=== PATIENT | female | born 1955 | race Caucasian/White ===

== ENCOUNTER 2018-11-28 11:18 | Inpatient (IN) | payer OTHER, SELFPAY ==
[2018-11-28] VITALS (15 sets, daily range): BP systolic 108–163; BP diastolic 45–91; PULSE 80–114; RESP 13–22; TEMP 36.4–37.2; O2SAT 96–100; BMI 36.6
[2018-11-28 11:39] LABS: Add Manual Diff / Slide Review NO; Basophils Absolute Auto 100 /uL (0-100); Basophils Percent Auto 1.4 % (0-2); Eosinophils Absolute Auto 100 /uL (0-450); Eosinophils Percent Auto 0.9 % (2-4); Hematocrit 37.6 % (36-46); Hemoglobin 12.6 g/dL (12.0-16.0); Lymphocytes Absolute Auto 1800 /uL (1100-4500); Lymphocytes Percent Auto 17.1 % (25-40); Mean Corpuscular HGB Conc 33.4 % (30-36); Mean Corpuscular Hemoglobin 32.2 PG (26-34); Mean Corpuscular Volume 96.5 fL (80-100); Monocytes Absolute Auto 500 /uL (0-900); Monocytes Percent Auto 4.7 % (3-14); Neutrophils Absolute Auto 7800 /uL (1500-7000); Neutrophils Percent Auto 75.9 % (50-75); Platelet Count 334 X10^3/uL (150-400); Red Cell Distribution Width 12.4 % (11.6-14.8); White Blood Cell Count 10.3 X10^3/uL (4.5-11.0)
[2018-11-28] MEDS: ONDANSETRON 4 MG/2 ML INJ IV (11:41)
[2018-11-28] MEDS: SODIUM CHLORIDE 0.9% 1,000 ML 1000 ML IV (11:41)
--- NOTE | 2018-11-28 11:42 | DI.CT.S_ITS ---
PROCEDURE: CT HEAD/BRAIN WO CON INDICATIONS: confused sp intentional over dose TECHNIQUE: Noncontrast 4.5 mm thick angled axial sections acquired from the foramen magnum to the vertex, with coronal and sagittal reformats. For radiation dose reduction, the following was used: automated exposure control, adjustment of mA and/or kV according to patient size. COMPARISON: [facility], CT, BRAIN W/O CONTRAST, 01/30/2013, 6:38. FINDINGS: Image quality: Excellent. CSF spaces: Basal cisterns are patent. No extra-axial fluid collections. Ventricles are normal in size and shape. Brain: No midline shift. No intracranial masses or hemorrhage. Glynn-white matter interface is normal. Skull and face: Calvarium and visualized facial bones are intact, without suspicious lesions. Sinuses: Visualized sinuses and mastoids are clear. IMPRESSION: Normal for age, source of current altered mental status symptoms is not seen. Dictated by: Kyle Wang M.D. on 11/28/2018 at 12:43 Approved by: Kyle Wang M.D. on 11/28/2018 at 12:43
[2018-11-28 11:49] LABS: Acetaminophen < 10 ug/mL (10-30); Alanine Aminotransferase 40 IU/L (9-52); Albumin 4.7 g/dL (3.5-5.0); Albumin Globulin Ratio 1.6 (1.0-2.8); Alkaline Phosphatase 83 U/L (38-126); Aspartate Aminotransferase 33 IU/L (14-36); BUN Creatinine Ratio 33.3 (6-22); Bilirubin Total 0.3 mg/dL (0.2-1.3); Bilirubin Unconjugated 0.1 mg/dL (0.0-1.1); Blood Urea Nitrogen 20 mg/dL (7-17); Calcium 9.3 mg/dL (8.4-10.2); Carbon Dioxide 24 mmol/L (22-32); Chloride 101 mmol/L (98-107); Creatine Kinase 55 U/L (30-135); Estimated Glomerular Filt Rate > 60.0 mL/min (>60); Ethanol (ETOH) < 10 mg/dL; Glucose 111 mg/dL (80-110); HEMOLYSIS < 15 (0-50); Potassium 4.3 mmol/L (3.4-5.1); Sodium 137 mmol/L (137-145); Total Protein 7.7 g/dL (6.3-8.2)
[2018-11-28 11:53] LABS: Salicylate < 1.0 mg/dL (<20)
[2018-11-28 11:57] LABS: Lactate (Lactic Acid) 1.5 mmol/L (0.7-2.1)
[2018-11-28 11:59] LABS: Troponin I < 0.012 ng/mL (0.01-0.034)
[2018-11-28 12:04] LABS: Procalcitonin 0.09 ng/mL (<0.5)
--- NOTE | 2018-11-28 12:09 | PC.NURSE ---
Addendum entered by Rupal Orosco R.N. 11/28/18 14:15: means to read 'runaway hyper thermia'. Original Note: Called [place] [facility] control: [phone], spoke w/ Marychuy.Suggested CMP, Mag, EKG. Watch for fever, muscle rigidity/ clonus and seizure. Repeat EKG in 1-2 hours. If QTC prolonged, If Mag is below 2 give magnesium to prevent potential for dysrythmia. Load w/ benzos if needed for if runaway hypothermia. Do 4 hour tylenol level. Would need medical or ICU admission.
--- NOTE | 2018-11-28 12:18 | PC.NURSE ---
Pt currently under critical care r/t over dose. Unable to make room safe r/t need for medical management.
--- NOTE | 2018-11-28 12:22 | PC.NURSE ---
1117: EKG QT/QTC 343/407
--- NOTE | 2018-11-28 12:36 | ED.OVERDOSE ---
HPI - Overdose General Chief Complaint: Toxicology Problem Stated Complaint: overdose / 150 duloxetine 60 mg tab Time Seen by Provider: 11/28/18 11:31 Source: EMS Mode of arrival: ambulatory Limitations: no limitations History of Present Illness HPI Narrative: The patient arrives by EMS after an overdose. She reported took 150 tablets of 60 mg Duloxetine about 6 a.m. this morning. She reported vomited within 20-30 minutes. She reports also consuming alcohol. The story of the overdose was somehow on covered by family members. She arrives by EMS sedated, able to tell the story about the overdose, and able to admit she has made a suicide attempt. However she is obviously disoriented and psychotic. Little well as could be obtained from the history at the time of her presentation. EMS reports her to be compliant. She has no chest pain or problems breathing. She has had no seizure. She has had no syncope Related Data Home Medications Medication Instructions Recorded Confirmed B-complex with vitamin C [Super B 1 tab PO DAILY 11/28/18 11/28/18 Complex-Vitamin C] alprazolam 1 mg PO BEDTIME 11/28/18 11/28/18 betamethasone valerate 1 applic TOPICAL BID PRN 11/28/18 11/28/18 betamethasone, augmented 1 applic TOPICAL BID PRN 11/28/18 11/28/18 [Diprolene] calcium carbonate-vitamin D3 2 tab PO DAILY 11/28/18 11/28/18 [Calcium 600 + D(3)] flaxseed oil 1,000 mg PO DAILY 11/28/18 11/28/18 fluoxetine 90 mg PO DAILY 11/28/18 11/28/18 folic acid 1 mg PO DAILY 11/28/18 11/28/18 gabapentin 300 mg PO QAM 11/28/18 11/28/18 gabapentin 400 - 600 mg PO BEDTIME 11/28/18 11/28/18 glucosamine-chondroitin 3 tab PO BID 11/28/18 11/28/18 lisinopril 40 mg PO DAILY 11/28/18 11/28/18 meloxicam [Mobic] 15 mg PO DAILY 11/28/18 11/28/18 metformin 500 mg PO BID 11/28/18 11/28/18 multivitamin 1 tab PO DAILY 11/28/18 11/28/18 vitamin E 400 unit PO DAILY 11/28/18 11/28/18 zolpidem 5 mg PO BEDTIME PRN 11/28/18 11/28/18 Allergies Allergy/AdvReac Type Severity Reaction Status Date / Time meperidine [From Demerol] AdvReac Intermediate Vomiting Verified 11/28/18 11:28 Review of Systems Review of Systems ROS is very limited due to her mental status condition. ROS is limited to the data in the H&P. [facility] Medical History Anxiety (Acute) Bipolar 1 disorder (Acute) Depression (Acute) Diabetes (Acute) Hypertension (Acute) Insomnia (Acute) Suicidal overdose (Acute) Social History household members: none Smoking Status: Never smoker alcohol intake: current Social History household members: none Smoking Status: Never smoker alcohol intake: current Exam Initial Vital Signs Initial Vital Signs: Vital Signs Pulse Rate 113 H 11/28/18 11:15 Respiratory Rate 21 11/28/18 11:15 Blood Pressure 145/78 H 11/28/18 11:15 Pulse Oximetry 97 11/28/18 11:15 Const General: cooperative, comfortable, No in distress, intoxicated appearing and lethargic [facility] Head: normocephalic and atraumatic Nose: external nose normal Face and sinus: face symmetric and no sinus tenderness Mouth: oral mucosae normal and moist mucous membranes Throat: posterior oropharynx normal, tonsils normal and uvula midline Eyes General: appearance normal, both eyes and all related structures Eyelids: eyelids normal Conjunctivae: conjunctivae normal Sclera: sclerae normal Pupils: PERRL and pupil size bilaterally 4 EOM: EOM intact bilaterally Neck Neck: normal visual inspection, trachea midline, No midline deformity and No JVD Lymphatic: No lymphadenopathy Chest Chest: normal inspection of the chest Resp Effort & Inspection: normal respiratory effort, able to speak in complete sentences, no respiratory distress and no use of accessory muscles Auscultation: clear to auscultation bilaterally, no rales, no rhonchi and no wheezes Cardio Rate: regular rate Rhythm: regular rhythm Heart Sounds: no click, no gallops, no murmurs and no rubs Pulses: normal peripheral pulses GI Inspection: non-distended Palpation: soft, no hepatosplenomegaly, No guarding, No pulsatile mass and No tender Auscultation: normal bowel sounds Skin General: no rashes or lesions noted and pallor Neuro General: no focal motor deficits Speech: speech normal Motor: muscle tone normal throughout Extrem General: full ROM, no pedal edema and no calf tenderness Psych Appearance: disheveled Mental Status: other (Sedated) Speech and Movement: speech and movement normal and slowed movement Mood: other (Sedated) Affect: blunted Attitude: cooperative Thought Process: illogical Thought Content: hallucinations and homicidality Other: She is disoriented to time and place. In discussing events before this morning she is clearly hallucinating, but speech deteriorating to confabulating. Course Course Narrative: The patient was started on a cardiac monitoring. If her blood pressure is normal. Her O2 sats are normal. Head CT was evaluated along with labs to the confusion. There are no significant findings on head CT. Labs are reassuring. There is no arrhythmia through the monitored. Serial EKGs were obtained, monitoring the QT segment. She remained stable during the ER time. The situation was discussed with the hospitalist, Dr. Chavarria. The patient will be admitted to the ICU. Orders Ordered: ED Orders 11/28/18 11:05 Acetaminophen Stat Complete Blood Count AUTO DIFF Stat Comprehensive Metabolic Panel Stat Ethanol (ETOH) Stat Hepatic (Liver) Panel Stat Magnesium Stat Procalcitonin Stat Salicylate Stat Troponin & CK Cardiac Panel Stat 11/28/18 11:29 Consult to Qm Consultant Urgent 11/28/18 11:35 Lactate (Lactic Acid) Stat 11/28/18 11:42 CT head/brain wo con Stat 11/28/18 11:45 Urine Drug Screen, Rapid Stat 11/28/18 12:25 EKG-12 Lead Stat 11/28/18 14:29 MRSA PCR Stat 11/28/18 15:09 Education, smoking cessation ONGOING Acetaminophen (Tylenol) 650 mg PO Q6HR PRN PRN Reason: As Needed for Fever/Mild Pain Alprazolam (Xanax) 1 mg PO BEDTIME DIANA Enoxaparin Sodium (Lovenox) 40 mg SUBCUT DAILY DIANA Gabapentin (Neurontin) 300 mg PO DAILY DIANA Gabapentin (Neurontin) 600 mg PO BEDTIME DIANA Sodium Chloride (Normal Saline 0.9%) 1,000 mls @ 1,000 mls/hr IV CONT DIANA Last Infusion: 11/28/18 13:21 Dose: 0 mls/hr Admin: 11/28/18 11:41 Dose: 1,000 mls/hr Sodium Chloride (Normal Saline 0.45%) 1,000 mls @ 100 mls/hr IV CONT DIANA Lisinopril (Zestril) 40 mg PO DAILY DIANA Meloxicam (Mobic) 15 mg PO DAILY DIANA Metformin HCl (Glucophage) 500 mg PO BID DIANA Discontinued Medications Ondansetron HCl (Zofran) 4 mg IV NOW ONE Stop: 11/28/18 11:30 Last Admin: 11/28/18 11:41 Dose: 4 mg Vital Signs - 8 hr 11/28/18 11:15 11/28/18 11:23 11/28/18 11:30 Temperature 98.9 F Pulse Rate 113 H 114 H 114 H Respiratory Rate 21 22 22 Blood Pressure 145/78 H Blood Pressure [Right Arm] 145/78 H 112/60 Pulse Oximetry 97 97 98 11/28/18 11:45 11/28/18 12:00 11/28/18 12:19 Temperature Pulse Rate 113 H 114 H 106 H Respiratory Rate 22 22 16 Blood Pressure Blood Pressure [Right Arm] 134/67 134/67 127/61 Pulse Oximetry 97 97 100 11/28/18 13:23 11/28/18 13:46 11/28/18 14:09 Temperature Pulse Rate 103 H 103 H 106 H Respiratory Rate 18 18 18 Blood Pressure Blood Pressure [Right Arm] 147/45 H 108/66 136/64 Pulse Oximetry 97 98 96 11/28/18 14:30 11/28/18 14:37 Temperature 98.9 F 98.9 F Pulse Rate 105 H Respiratory Rate 13 Blood Pressure 163/79 H Blood Pressure [Right Arm] Pulse Oximetry 98 MDM - Overdose Lab Data Result diagrams: 11/28/18 11:05 11/28/18 11:05 Lab Results 11/28/18 11/28/18 11/28/18 Range/Units 11:05 11:05 11:05 WBC 10.3 (4.5-11.0) X10^3/uL RBC 3.90 L (4.0-5.2) X10^6/uL Hgb 12.6 (12.0-16.0) g/dL Hct 37.6 (36-46) % MCV 96.5 (80-100) fL MCH 32.2 (26-34) PG MCHC 33.4 (30-36) % RDW 12.4 (11.6-14.8) % Plt Count 334 (150-400) X10^3/uL Neut % (Auto) 75.9 H (50-75) % Lymph % (Auto) 17.1 L (25-40) % Williams % (Auto) 4.7 (3-14) % Eos % (Auto) 0.9 L (2-4) % Baso % (Auto) 1.4 (0-2) % Neut # (Auto) 7800 H (5620-5867) /uL Lymph # (Auto) 1800 (5902-8214) /uL Williams # (Auto) 500 (0-900) /uL Eos # (Auto) 100 (0-450) /uL Baso # (Auto) 100 (0-100) /uL Sodium 137 (137-145) mmol/L Potassium 4.3 (3.4-5.1) mmol/L Chloride 101 (98-107) mmol/L Carbon Dioxide 24 (22-32) mmol/L BUN 20 H (7-17) mg/dL Creatinine 0.60 (0.52-1.04) mg/dL Estimated GFR > 60.0 (>60) mL/min BUN/Creatinine Ratio 33.3 H (6-22) Glucose 111 H (80-110) mg/dL Lactate (0.7-2.1) mmol/L Calcium 9.3 (8.4-10.2) mg/dL Magnesium (1.6-2.3) mg/dL Total Bilirubin 0.3 (0.2-1.3) mg/dL Conjugated Bilirubin 0.0 (0.0-0.3) md/dL Unconjugated Bilirubin 0.1 (0.0-1.1) mg/dL AST 33 (14-36) IU/L ALT 40 (9-52) IU/L Alkaline Phosphatase 83 (38-126) U/L Total Creatine Kinase 55 (30-135) U/L CK-MB (CK-2) TNP CK-MB (CK-2) Rel Index TNP Troponin I < 0.012 (0.01-0.034) ng/mL Total Protein 7.7 (6.3-8.2) g/dL Albumin 4.7 (3.5-5.0) g/dL Globulin 3.0 (1.7-4.1) g/dL Albumin/Globulin Ratio 1.6 (1.0-2.8) Procalcitonin 0.09 (<0.5) ng/mL Salicylates < 1.0 (<20) mg/dL Urine Opiates Screen (Negative) Ur Oxycodone Screen (Negative) Urine Methadone Screen (Negative) Acetaminophen < 10 L (10-30) ug/mL Ur Barbiturates Screen (Negative) U Tricyclic Antidepress (Negative) Ur Phencyclidine Scrn (Negative) Ur Amphetamines Screen (Negative) U Methamphetamines Scrn (Negative) Ur MDMA Scrn (Ecstasy) (Negative) U Benzodiazepines Scrn (Negative) Urine Cocaine Screen (Negative) U Marijuana (THC) Screen (Negative) Ethyl Alcohol < 10 mg/dL 11/28/18 11/28/18 11/28/18 Range/Units 11:05 11:35 11:45 WBC (4.5-11.0) X10^3/uL RBC (4.0-5.2) X10^6/uL Hgb (12.0-16.0) g/dL Hct (36-46) % MCV (80-100) fL MCH (26-34) PG MCHC (30-36) % RDW (11.6-14.8) % Plt Count (150-400) X10^3/uL Neut % (Auto) (50-75) % Lymph % (Auto) (25-40) % Williams % (Auto) (3-14) % Eos % (Auto) (2-4) % Baso % (Auto) (0-2) % Neut # (Auto) (7043-4664) /uL Lymph # (Auto) (6594-8782) /uL Williams # (Auto) (0-900) /uL Eos # (Auto) (0-450) /uL Baso # (Auto) (0-100) /uL Sodium (137-145) mmol/L Potassium (3.4-5.1) mmol/L Chloride (98-107) mmol/L Carbon Dioxide (22-32) mmol/L BUN (7-17) mg/dL Creatinine (0.52-1.04) mg/dL Estimated GFR (>60) mL/min BUN/Creatinine Ratio (6-22) Glucose (80-110) mg/dL Lactate 1.5 (0.7-2.1) mmol/L Calcium (8.4-10.2) mg/dL Magnesium 2.0 (1.6-2.3) mg/dL Total Bilirubin (0.2-1.3) mg/dL Conjugated Bilirubin (0.0-0.3) md/dL Unconjugated Bilirubin (0.0-1.1) mg/dL AST (14-36) IU/L ALT (9-52) IU/L Alkaline Phosphatase (38-126) U/L Total Creatine Kinase (30-135) U/L CK-MB (CK-2) CK-MB (CK-2) Rel Index Troponin I (0.01-0.034) ng/mL Total Protein (6.3-8.2) g/dL Albumin (3.5-5.0) g/dL Globulin (1.7-4.1) g/dL Albumin/Globulin Ratio (1.0-2.8) Procalcitonin (<0.5) ng/mL Salicylates (<20) mg/dL Urine Opiates Screen Negative (Negative) Ur Oxycodone Screen Negative (Negative) Urine Methadone Screen Negative (Negative) Acetaminophen (10-30) ug/mL Ur Barbiturates Screen Negative (Negative) U Tricyclic Antidepress Negative (Negative) Ur Phencyclidine Scrn Negative (Negative) Ur Amphetamines Screen Negative (Negative) U Methamphetamines Scrn Negative (Negative) Ur MDMA Scrn (Ecstasy) Negative (Negative) U Benzodiazepines Scrn Positive H (Negative) Urine Cocaine Screen Negative (Negative) U Marijuana (THC) Screen Negative (Negative) Ethyl Alcohol mg/dL Imaging Data CT scan - head: Radiologist's impression: [address] [address] [address] Scan Report Signed Patient: Janell Vee GMR#: [id number] : 7Acct:[id number] Age/Sex: 62 / FDate of Service: 11/28/18 Loc: ED Accession Number: [id number] Procedure: CT head/brain wo con Ordering Provider: Tino Quigley M.D. PROCEDURE: CT HEAD/BRAIN WO CON INDICATIONS: confused sp intentional over dose TECHNIQUE: Noncontrast 4.5 mm thick angled axial sections acquired from the foramen magnum to the vertex, with coronal and sagittal reformats. For radiation dose reduction, the following was used: automated exposure control, adjustment of mA and/or kV according to patient size. COMPARISON: [facility], CT, BRAIN W/O CONTRAST, 01/30/2013, 6:38. FINDINGS: Image quality: Excellent. CSF spaces: Basal cisterns are patent. No extra-axial fluid collections. Ventricles are normal in size and shape. Brain: No midline shift. No intracranial masses or hemorrhage. Glynn-white matter interface is normal. Skull and face: Calvarium and visualized facial bones are intact, without suspicious lesions. Sinuses: Visualized sinuses and mastoids are clear. IMPRESSION: Normal for age, source of current altered mental status symptoms is not seen. Dictated by: Kyle Wang M.D. on 11/28/2018 at 12:43 Approved by: Kyle Wang M.D. on 11/28/2018 at 12:43 ECG Data Attestation: I personally reviewed and interpreted this ECG as follows: (EKG#1: Sinus tachycardia rate 108. No acute ST T wave changes. No ectopy. QTC 343. QTC 407.EKG#2: Sinus tachycardia. No changes. QTC 3 54. QTC 414. EKG 3.: Sinus tachycardia rate 103. No acute ST T wave changes. No ectopy. QTC 355. QTC 414.) Critical Care Time Critical Care Time: Yes Total Critical Care Time: 45 Attestation: Extensive attention was given to the patient regarding the overdose, with the potential consequences. We have hydrated her. She has undergone extensive cardiac monitoring. Head CT and lab work are reassuring. Situation discussed with the admitting hospitalist, Dr. Chavarria. The patient be admitted to the ICU. Discharge Plan Departure Patient Disposition: Admitted As Inpatient Clinical Impression: Overdose Interventions: ED Discharge Assessment Last Done: 11/28/18 14:30 Admit Date/Time: 11/28/18 14:06 Admit Provider: Lencho Chavarria
[2018-11-28 12:37] LABS: Urine Amphetamines Negative (Negative); Urine Barbiturates Negative (Negative); Urine Benzodiazepines Positive (Negative); Urine Cocaine Negative (Negative); Urine MDMA Negative (Negative); Urine Methadone Negative (Negative); Urine Methamphetamines Negative (Negative); Urine Morphine/Opi cutoff 2000 Negative (Negative); Urine Oxycodone Negative (Negative); Urine Phencyclidine Negative (Negative); Urine Tetrahydrocannabinol Negative (Negative); Urine Tricyclic Antidepressant Negative (Negative)
--- NOTE | 2018-11-28 12:41 | PC.NURSE ---
Repeat EKG 1228: QT/QTC 354/414. Provider aware.
--- NOTE | 2018-11-28 12:50 | ED_ITS ---
HPI - Overdose General Chief Complaint: Toxicology Problem Stated Complaint: overdose / 150 duloxetine 60 mg tab Time Seen by Provider: 11/28/18 11:31 Source: EMS Mode of arrival: ambulatory Limitations: no limitations History of Present Illness HPI Narrative: The patient arrives by EMS after an overdose. She reported took 150 tablets of 60 mg Duloxetine about 6 a.m. this morning. She reported vomited within 20-30 minutes. She reports also consuming alcohol. The story of the overdose was somehow on covered by family members. She arrives by EMS sedated, able to tell the story about the overdose, and able to admit she has made a suicide attempt. However she is obviously disoriented and psychotic. Little well as could be obtained from the history at the time of her presentation. EMS reports her to be compliant. She has no chest pain or problems breathing. She has had no seizure. She has had no syncope Related Data Home Medications Medication Instructions Recorded Confirmed B-complex with vitamin C [Super B 1 tab PO DAILY 11/28/18 11/28/18 Complex-Vitamin C] alprazolam 1 mg PO BEDTIME 11/28/18 11/28/18 betamethasone valerate 1 applic TOPICAL BID PRN 11/28/18 11/28/18 betamethasone, augmented 1 applic TOPICAL BID PRN 11/28/18 11/28/18 [Diprolene] calcium carbonate-vitamin D3 2 tab PO DAILY 11/28/18 11/28/18 [Calcium 600 + D(3)] flaxseed oil 1,000 mg PO DAILY 11/28/18 11/28/18 fluoxetine 90 mg PO DAILY 11/28/18 11/28/18 folic acid 1 mg PO DAILY 11/28/18 11/28/18 gabapentin 300 mg PO QAM 11/28/18 11/28/18 gabapentin 400 - 600 mg PO BEDTIME 11/28/18 11/28/18 glucosamine-chondroitin 3 tab PO BID 11/28/18 11/28/18 lisinopril 40 mg PO DAILY 11/28/18 11/28/18 meloxicam [Mobic] 15 mg PO DAILY 11/28/18 11/28/18 metformin 500 mg PO BID 11/28/18 11/28/18 multivitamin 1 tab PO DAILY 11/28/18 11/28/18 vitamin E 400 unit PO DAILY 11/28/18 11/28/18 zolpidem 5 mg PO BEDTIME PRN 11/28/18 11/28/18 Allergies Allergy/AdvReac Type Severity Reaction Status Date / Time meperidine [From Demerol] AdvReac Intermediate Vomiting Verified 11/28/18 11:28 Review of Systems Review of Systems ROS is very limited due to her mental status condition. ROS is limited to the data in the H&P. [facility] Medical History Anxiety (Acute) Bipolar 1 disorder (Acute) Depression (Acute) Diabetes (Acute) Hypertension (Acute) Insomnia (Acute) Suicidal overdose (Acute) Social History household members: none Smoking Status: Never smoker alcohol intake: current Social History household members: none Smoking Status: Never smoker alcohol intake: current Exam Initial Vital Signs Initial Vital Signs: Vital Signs Pulse Rate 113 H 11/28/18 11:15 Respiratory Rate 21 11/28/18 11:15 Blood Pressure 145/78 H 11/28/18 11:15 Pulse Oximetry 97 11/28/18 11:15 Const General: cooperative, comfortable, No in distress, intoxicated appearing and l ethargic HENMT Head: normocephalic and atraumatic Nose: external nose normal Face and sinus: face symmetric and no sinus tenderness Mouth: oral mucosae normal and moist mucous membranes Throat: posterior oropharynx normal, tonsils normal and uvula midline Eyes General: appearance normal, both eyes and all related structures Eyelids: eyelids normal Conjunctivae: conjunctivae normal Sclera: sclerae normal Pupils: PERRL and pupil size bilaterally 4 EOM: EOM intact bilaterally Neck Neck: normal visual inspection, trachea midline, No midline deformity and No JVD Lymphatic: No lymphadenopathy Chest Chest: normal inspection of the chest Resp Effort & Inspection: normal respiratory effort, able to speak in complete sentences, no respiratory distress and no use of accessory muscles Auscultation: clear to auscultation bilaterally, no rales, no rhonchi and no wheezes Cardio Rate: regular rate Rhythm: regular rhythm Heart Sounds: no click, no gallops, no murmurs and no rubs Pulses: normal peripheral pulses GI Inspection: non-distended Palpation: soft, no hepatosplenomegaly, No guarding, No pulsatile mass and No tender Auscultation: normal bowel sounds Skin General: no rashes or lesions noted and pallor Neuro General: no focal motor deficits Speech: speech normal Motor: muscle tone normal throughout Extrem General: full ROM, no pedal edema and no calf tenderness Psych Appearance: disheveled Mental Status: other (Sedated) Speech and Movement: speech and movement normal and slowed movement Mood: other (Sedated) Affect: blunted Attitude: cooperative Thought Process: illogical Thought Content: hallucinations and homicidality Other: She is disoriented to time and place. In discussing events before this morning she is clearly hallucinating, but speech deteriorating to confabulating. Course Course Narrative: The patient was started on a cardiac monitoring. If her blood pressure is normal. Her O2 sats are normal. Head CT was evaluated along with labs to the confusion. There are no significant findings on head CT. Labs are reassuring. There is no arrhythmia through the monitored. Serial EKGs were obtained, monitoring the QT segment. She remained stable during the ER time. The situation was discussed with the hospitalist, Dr. Chavarria. The patient will be admitted to the ICU. Orders Ordered: ED Orders 11/28/18 11:05 Acetaminophen Stat Complete Blood Count AUTO DIFF Stat Comprehensive Metabolic Panel Stat Ethanol (ETOH) Stat Hepatic (Liver) Panel Stat Magnesium Stat Procalcitonin Stat Salicylate Stat Troponin & CK Cardiac Panel Stat 11/28/18 11:29 Consult to Pelletising Extruder Operator Urgent 11/28/18 11:35 Lactate (Lactic Acid) Stat 11/28/18 11:42 CT head/brain wo con Stat 11/28/18 11:45 Urine Drug Screen, Rapid Stat 11/28/18 12:25 EKG-12 Lead Stat 11/28/18 14:29 MRSA PCR Stat 11/28/18 15:09 Education, smoking cessation ONGOING Acetaminophen (Tylenol) 650 mg PO Q6HR PRN PRN Reason: As Needed for Fever/Mild Pain Alprazolam (Xanax) 1 mg PO BEDTIME DIANA Enoxaparin Sodium (Lovenox) 40 mg SUBCUT DAILY DIANA Gabapentin (Neurontin) 300 mg PO DAILY DIANA Gabapentin (Neurontin) 600 mg PO BEDTIME DIANA Sodium Chloride (Normal Saline 0.9%) 1,000 mls @ 1,000 mls/hr IV CONT DIANA Last Infusion: 11/28/18 13:21 Dose: 0 mls/hr Admin: 11/28/18 11:41 Dose: 1,000 mls/hr Sodium Chloride (Normal Saline 0.45%) 1,000 mls @ 100 mls/hr IV CONT DIANA Lisinopril (Zestril) 40 mg PO DAILY DIANA Meloxicam (Mobic) 15 mg PO DAILY DIANA Metformin HCl (Glucophage) 500 mg PO BID [facility] Discontinued Medications Ondansetron HCl (Zofran) 4 mg IV NOW ONE Stop: 11/28/18 11:30 Last Admin: 11/28/18 11:41 Dose: 4 mg Vital Signs - 8 hr 11/28/18 11:15 11/28/18 11:23 11/28/18 11:30 Temperature 98.9 F Pulse Rate 113 H 114 H 114 H Respiratory Rate 21 22 22 Blood Pressure 145/78 H Blood Pressure [Right Arm] 145/78 H 112/60 Pulse Oximetry 97 97 98 11/28/18 11:45 11/28/18 12:00 11/28/18 12:19 Temperature Pulse Rate 113 H 114 H 106 H Respiratory Rate 22 22 16 Blood Pressure Blood Pressure [Right Arm] 134/67 134/67 127/61 Pulse Oximetry 97 97 100 11/28/18 13:23 11/28/18 13:46 11/28/18 14:09 Temperature Pulse Rate 103 H 103 H 106 H Respiratory Rate 18 18 18 Blood Pressure Blood Pressure [Right Arm] 147/45 H 108/66 136/64 Pulse Oximetry 97 98 96 11/28/18 14:30 11/28/18 14:37 Temperature 98.9 F 98.9 F Pulse Rate 105 H Respiratory Rate 13 Blood Pressure 163/79 H Blood Pressure [Right Arm] Pulse Oximetry 98 MDM - Overdose Lab Data Result diagrams: 11/28/18 11:05 11/28/18 11:05 Lab Results 11/28/18 11/28/18 11/28/18 Range/Units 11:05 11:05 11:05 WBC 10.3 (4.5-11.0) X10^3/uL RBC 3.90 L (4.0-5.2) X10^6/uL Hgb 12.6 (12.0-16.0) g/dL Hct 37.6 (36-46) % MCV 96.5 (80-100) fL MCH 32.2 (26-34) PG MCHC 33.4 (30-36) % RDW 12.4 (11.6-14.8) % Plt Count 334 (150-400) X10^3/uL Neut % (Auto) 75.9 H (50-75) % Lymph % (Auto) 17.1 L (25-40) % Kemper % (Auto) 4.7 (3-14) % Eos % (Auto) 0.9 L (2-4) % Baso % (Auto) 1.4 (0-2) % Neut # (Auto) 7800 H (2279-4658) /uL Lymph # (Auto) 1800 (3027-0797) /uL Kemper # (Auto) 500 (0-900) /uL Eos # (Auto) 100 (0-450) /uL Baso # (Auto) 100 (0-100) /uL Sodium 137 (137-145) mmol/L Potassium 4.3 (3.4-5.1) mmol/L Chloride 101 (98-107) mmol/L Carbon Dioxide 24 (22-32) mmol/L BUN 20 H (7-17) mg/dL Creatinine 0.60 (0.52-1.04) mg/dL Estimated GFR > 60.0 (>60) mL/min BUN/Creatinine Ratio 33.3 H (6-22) Glucose 111 H (80-110) mg/dL Lactate (0.7-2.1) mmol/L Calcium 9.3 (8.4-10.2) mg/dL Magnesium (1.6-2.3) mg/dL Total Bilirubin 0.3 (0.2-1.3) mg/dL Conjugated Bilirubin 0.0 (0.0-0.3) md/dL Unconjugated Bilirubin 0.1 (0.0-1.1) mg/dL AST 33 (14-36) IU/L ALT 40 (9-52) IU/L Alkaline Phosphatase 83 (38-126) U/L Total Creatine Kinase 55 (30-135) U/L CK-MB (CK-2) TNP CK-MB (CK-2) Rel Index TNP Troponin I < 0.012 (0.01-0.034) ng/mL Total Protein 7.7 (6.3-8.2) g/dL Albumin 4.7 (3.5-5.0) g/dL Globulin 3.0 (1.7-4.1) g/dL Albumin/Globulin Ratio 1.6 (1.0-2.8) Procalcitonin 0.09 (<0.5) ng/mL Salicylates < 1.0 (<20) mg/dL Urine Opiates Screen (Negative) Ur Oxycodone Screen (Negative) Urine Methadone Screen (Negative) Acetaminophen < 10 L (10-30) ug/mL Ur Barbiturates Screen (Negative) U Tricyclic Antidepress (Negative) Ur Phencyclidine Scrn (Negative) Ur Amphetamines Screen (Negative) U Methamphetamines Scrn (Negative) Ur MDMA Scrn (Ecstasy) (Negative) U Benzodiazepines Scrn (Negative) Urine Cocaine Screen (Negative) U Marijuana (THC) Screen (Negative) Ethyl Alcohol < 10 mg/dL 11/28/18 11/28/18 11/28/18 Range/Units 11:05 11:35 11:45 WBC (4.5-11.0) X10^3/uL RBC (4.0-5.2) X10^6/uL Hgb (12.0-16.0) g/dL Hct (36-46) % MCV (80-100) fL MCH (26-34) PG MCHC (30-36) % RDW (11.6-14.8) % Plt Count (150-400) X10^3/uL Neut % (Auto) (50-75) % Lymph % (Auto) (25-40) % Kemper % (Auto) (3-14) % Eos % (Auto) (2-4) % Baso % (Auto) (0-2) % Neut # (Auto) (7411-5576) /uL Lymph # (Auto) (0432-2866) /uL Kemper # (Auto) (0-900) /uL Eos # (Auto) (0-450) /uL Baso # (Auto) (0-100) /uL Sodium (137-145) mmol/L Potassium (3.4-5.1) mmol/L Chloride (98-107) mmol/L Carbon Dioxide (22-32) mmol/L BUN (7-17) mg/dL Creatinine (0.52-1.04) mg/dL Estimated GFR (>60) mL/min BUN/Creatinine Ratio (6-22) Glucose (80-110) mg/dL Lactate 1.5 (0.7-2.1) mmol/L Calcium (8.4-10.2) mg/dL Magnesium 2.0 (1.6-2.3) mg/dL Total Bilirubin (0.2-1.3) mg/dL Conjugated Bilirubin (0.0-0.3) md/dL Unconjugated Bilirubin (0.0-1.1) mg/dL AST (14-36) IU/L ALT (9-52) IU/L Alkaline Phosphatase (38-126) U/L Total Creatine Kinase (30-135) U/L CK-MB (CK-2) CK-MB (CK-2) Rel Index Troponin I (0.01-0.034) ng/mL Total Protein (6.3-8.2) g/dL Albumin (3.5-5.0) g/dL Globulin (1.7-4.1) g/dL Albumin/Globulin Ratio (1.0-2.8) Procalcitonin (<0.5) ng/mL Salicylates (<20) mg/dL Urine Opiates Screen Negative (Negative) Ur Oxycodone Screen Negative (Negative) Urine Methadone Screen Negative (Negative) Acetaminophen (10-30) ug/mL Ur Barbiturates Screen Negative (Negative) U Tricyclic Antidepress Negative (Negative) Ur Phencyclidine Scrn Negative (Negative) Ur Amphetamines Screen Negative (Negative) U Methamphetamines Scrn Negative (Negative) Ur MDMA Scrn (Ecstasy) Negative (Negative) U Benzodiazepines Scrn Positive H (Negative) Urine Cocaine Screen Negative (Negative) U Marijuana (THC) Screen Negative (Negative) Ethyl Alcohol mg/dL Imaging Data CT scan - head: Radiologist's impression: [address] [address] [address] Scan Report Signed Patient: Janell Vee GMR#: [id number] : 7Acct:[id number] Age/Sex: 62 / FDate of Service: 11/28/18 Loc: ED Accession Number: [id number] Procedure: CT head/brain wo con Ordering Provider: Tino Quigley M.D. PROCEDURE: CT HEAD/BRAIN WO CON INDICATIONS: confused sp intentional over dose TECHNIQUE: Noncontrast 4.5 mm thick angled axial sections acquired from the foramen magnum to the vertex, with coronal and sagittal reformats. For radiation dose reduction, the following was used: automated exposure control, adjustment of mA and/or kV according to patient size. COMPARISON: [facility], CT, BRAIN W/O CONTRAST, 01/30/2013, 6:38. FINDINGS: Image quality: Excellent. CSF spaces: Basal cisterns are patent. No extra-axial fluid collections. Ventricles are normal in size and shape. Brain: No midline shift. No intracranial masses or hemorrhage. Glynn-white matter interface is normal. Skull and face: Calvarium and visualized facial bones are intact, without suspicious lesions. Sinuses: Visualized sinuses and mastoids are clear. IMPRESSION: Normal for age, source of current altered mental status symptoms is not seen. Dictated by: Kyle Wang M.D. on 11/28/2018 at 12:43 Approved by: Kyle Wang M.D. on 11/28/2018 at 12:43 ECG Data Attestation: I personally reviewed and interpreted this ECG as follows: (EKG#1: Sinus tachycardia rate 108. No acute ST T wave changes. No ectopy. QTC 343. QTC 407.EKG#2: Sinus tachycardia. No changes. QTC 3 54. QTC 414. EKG 3.: Sinus tachycardia rate 103. No acute ST T wave changes. No ectopy. QTC 355. QTC 414.) Critical Care Time Critical Care Time: Yes Total Critical Care Time: 45 Attestation: Extensive attention was given to the patient regarding the overdose, with the potential consequences. We have hydrated her. She has undergone extensive cardiac monitoring. Head CT and lab work are reassuring. Situation discussed with the admitting hospitalist, Dr. Chavarria. The patient be admitted to the ICU. Discharge Plan Departure Patient Disposition: Admitted As Inpatient Clinical Impression: Overdose Interventions: ED Discharge Assessment Last Done: 11/28/18 14:30 Admit Date/Time: 11/28/18 14:06 Admit Provider: Lencho Chavarria
--- NOTE | 2018-11-28 12:53 | PC.NURSE ---
Daughter in to see patient. Pt continues to be slightly confused, difficulty tracking conversation. all belongings released to daughter Berenice per pt request
--- NOTE | 2018-11-28 14:03 | PC.NURSE ---
Repeat EKG: AT/ ATc 355/414
--- NOTE | 2018-11-28 15:09 | PC.NURSE ---
Pt admitted to ICU following overdose of duloxitine (Cymbalta) tabs this am at 0600. (x150 tabs of 60 mg). Also took some wine with this this. Dtr present during admission. Pt is awake and oriented. Noted bilat tremor that is not always present. Mildly diaphoretic, but afebrile at this time. Pt has fibromyalgia with chronic arthritic and neuralgic pain. Andrade in right knee and in left side of neck. Daily drinker of wine and vodka - possibly 3 glasses a day. Seizure pads in place. Monitor for serotonin syndrome per poison control. Also risk of malignant hyperthermia. Pt appears calm but anxious at this time. Drowsy with mild restlessness. Pt oriented to room and place and advised that she would not be able to get OOB without assistance. Bed alarm activated.
--- NOTE | 2018-11-28 15:29 | P.HP_ITS ---
History of Present Illness Date Patient Seen: 11/28/18 Chief complaint: overdose / 150 duloxetine 60 mg tab Narrative: Patient is a 62-year-old female with history of depression, recent stressors, who took intentional overdose of previously prescribed antidepressant. Patient states she took 150 tablets of 60 mg duloxetine at about quarter to 6 this morning. Somehow a friend her daughter was alerted and patient ended up in the ER very confused. Subsequently her confusion has been clearing up. Patient states she intentionally took the pills in attempt to end her life. She is going through a divorce and actually was supposed to meet with fruit sorter today. 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 Her daughter back in 2005 in car accident and it seems that has been on her mind as well. Patient states she vomited about 20 min after taking overdose. She also took a Swig of alcohol with the medicine. The duloxetine was from a prior prescription and it seems she was switched most recently to fluoxetine. She does take alprazolam 1 mg at night but denies overdose of this drug. Patient states she is not seeing a therapist or psychiatrist. Patient's ER evaluation included normal telemetry except tachycardia, EKG x3 with normal QT intervals, not acidotic. Family history: Positive for bipolar disorder and daughter, father with suicidal depression Patient History Medical History Anxiety (Acute) Depression (Acute) Diabetes (Acute) Hypertension (Acute) Insomnia (Acute) Suicidal overdose (Acute) Social History household members: none Smoking Status: Never smoker alcohol intake: current Family & Social History Social History: household members none Prior Living Arrangements House Safety & Behavioral: Feels Safe in Current Yes Environment Been Physically Hurt or No Threatened By a Person Suicidal Ideation Description Vague Suicide Plan Description Vague,High Lethality Tobacco & Substance use: Smoking Status Never smoker alcohol intake current alcohol intake frequency 3 or more drinks per day Substance Use Type does not use Meds Home Medications Medication Instructions Recorded Confirmed Type B-complex with vitamin C [Super B 1 tab PO DAILY 11/28/18 11/28/18 History Complex-Vitamin C] alprazolam 1 mg PO TID 11/28/18 11/28/18 History betamethasone valerate 1 applic TOPICAL BID PRN 11/28/18 11/28/18 History betamethasone, augmented 1 applic TOPICAL BID PRN 11/28/18 11/28/18 History [Diprolene] calcium carbonate-vitamin D3 2 tab PO DAILY 11/28/18 11/28/18 History [Calcium 600 + D(3)] flaxseed oil 1,000 mg PO DAILY 11/28/18 11/28/18 History fluoxetine 90 mg PO DAILY 11/28/18 11/28/18 History folic acid 1 mg PO DAILY 11/28/18 11/28/18 History gabapentin 300 mg PO QAM 11/28/18 11/28/18 History gabapentin 400 - 600 mg PO BEDTIME 11/28/18 11/28/18 History glucosamine-chondroitin 3 tab PO BID 11/28/18 11/28/18 History lisinopril 40 mg PO DAILY 11/28/18 11/28/18 History meloxicam [Mobic] 15 mg PO DAILY 11/28/18 11/28/18 History metformin 500 mg PO BID 11/28/18 11/28/18 History multivitamin 1 tab PO DAILY 11/28/18 11/28/18 History vitamin E 400 unit PO DAILY 11/28/18 11/28/18 History zolpidem 5 mg PO BEDTIME PRN 11/28/18 11/28/18 History Allergies Allergy/AdvReac Type Severity Reaction Status Date / Time meperidine [From Demerol] AdvReac Intermediate Vomiting Verified 11/28/18 11:28 Review of Systems Review of Systems All systems reviewed & are unremarkable except as noted in HPI and below Exam Vital Signs (past 8 hours): - 11/28/18 11:15 11/28/18 11:23 11/28/18 11:30 Temperature 98.9 F Pulse Rate 113 H 114 H 114 H Respiratory Rate 21 22 22 Blood Pressure 145/78 H Blood Pressure [Right Arm] 145/78 H 112/60 Pulse Oximetry 97 97 98 11/28/18 11:45 11/28/18 12:00 11/28/18 12:19 Temperature Pulse Rate 113 H 114 H 106 H Respiratory Rate 22 22 16 Blood Pressure Blood Pressure [Right Arm] 134/67 134/67 127/61 Pulse Oximetry 97 97 100 11/28/18 13:23 11/28/18 13:46 11/28/18 14:09 Temperature Pulse Rate 103 H 103 H 106 H Respiratory Rate 18 18 18 Blood Pressure Blood Pressure [Right Arm] 147/45 H 108/66 136/64 Pulse Oximetry 97 98 96 11/28/18 14:30 11/28/18 14:37 Temperature 98.9 F 98.9 F Pulse Rate 105 H Respiratory Rate 13 Blood Pressure 163/79 H Blood Pressure [Right Arm] Pulse Oximetry 98 Oxygen Delivery Method Room Air Narrative Exam Narrative: GENERAL: Slightly lethargic female, cooperative HEAD: Atraumatic. Normocephalic. EYES: Pupils equal, round and reactive. Extraocular motions intact. No scleral icterus. No injection or drainage. OROPHARYNX: moist mucosa NECK: Trachea midline. No JVD or lymphadenopathy. CARDIOVASCULAR: Regular rate and rhythm without murmurs, gallops, or rubs. RESPIRATORY: Clear to auscultation bilaterally. GASTROINTESTINAL: Abdomen nondistended, soft, non-tender. No hepato- splenomegaly, or palpable masses. EXTREMITIES: No edema. NEUROLOGICAL: Currently oriented to person and place, speech clear and nonpressured, affect very diminished SKIN: warm, dry, no rash Objective Labs Result Diagrams: 11/28/18 11:05 11/28/18 11:05 Labs: Laboratory Results - last 24 hr 11/28/18 11/28/18 11/28/18 11:05 11:05 11:05 WBC 10.3 RBC 3.90 L Hgb 12.6 Hct 37.6 MCV 96.5 MCH 32.2 MCHC 33.4 RDW 12.4 Plt Count 334 Neut % (Auto) 75.9 H Lymph % (Auto) 17.1 L Gilchrist % (Auto) 4.7 Eos % (Auto) 0.9 L Baso % (Auto) 1.4 Neut # (Auto) 7800 H Lymph # (Auto) 1800 Gilchrist # (Auto) 500 Eos # (Auto) 100 Baso # (Auto) 100 Sodium 137 Potassium 4.3 Chloride 101 Carbon Dioxide 24 BUN 20 H Creatinine 0.60 Estimated GFR > 60.0 BUN/Creatinine Ratio 33.3 H Glucose 111 H Lactate Calcium 9.3 Magnesium Total Bilirubin 0.3 Conjugated Bilirubin 0.0 Unconjugated Bilirubin 0.1 AST 33 ALT 40 Alkaline Phosphatase 83 Total Creatine Kinase 55 CK-MB (CK-2) TNP CK-MB (CK-2) Rel Index TNP Troponin I < 0.012 Total Protein 7.7 Albumin 4.7 Globulin 3.0 Albumin/Globulin Ratio 1.6 Procalcitonin 0.09 Salicylates < 1.0 Urine Opiates Screen Ur Oxycodone Screen Urine Methadone Screen Acetaminophen < 10 L Ur Barbiturates Screen U Tricyclic Antidepress Ur Phencyclidine Scrn Ur Amphetamines Screen U Methamphetamines Scrn Ur MDMA Scrn (Ecstasy) U Benzodiazepines Scrn Urine Cocaine Screen U Marijuana (THC) Screen Ethyl Alcohol < 10 11/28/18 11/28/18 11/28/18 11:05 11:35 11:45 WBC RBC Hgb Hct MCV MCH MCHC RDW Plt Count Neut % (Auto) Lymph % (Auto) Gilchrist % (Auto) Eos % (Auto) Baso % (Auto) Neut # (Auto) Lymph # (Auto) Gilchrist # (Auto) Eos # (Auto) Baso # (Auto) Sodium Potassium Chloride Carbon Dioxide BUN Creatinine Estimated GFR BUN/Creatinine Ratio Glucose Lactate 1.5 Calcium Magnesium 2.0 Total Bilirubin Conjugated Bilirubin Unconjugated Bilirubin AST ALT Alkaline Phosphatase Total Creatine Kinase CK-MB (CK-2) CK-MB (CK-2) Rel Index Troponin I Total Protein Albumin Globulin Albumin/Globulin Ratio Procalcitonin Salicylates Urine Opiates Screen Negative Ur Oxycodone Screen Negative Urine Methadone Screen Negative Acetaminophen Ur Barbiturates Screen Negative U Tricyclic Antidepress Negative Ur Phencyclidine Scrn Negative Ur Amphetamines Screen Negative U Methamphetamines Scrn Negative Ur MDMA Scrn (Ecstasy) Negative U Benzodiazepines Scrn Positive H Urine Cocaine Screen Negative U Marijuana (THC) Screen Negative Ethyl Alcohol Assessment & Plan Assessment & Plan narrative: 62-year-old female admitted after intentional drug overdose. 1. Drug overdose, intentional -on treatment for depression and anxiety -took 150 mg capsules duloxetine 60 mg from prior prescription -currently stable without EKG changes or evidence of seizures -monitor in ICU observation -maintenance IV fluids -continue patient's alprazolam 1 mg at bedtime, hold fluoxetine -mental health consult once stable 2. Diabetes, controlled -continue metformin 500 mg twice daily new 3. Chronic pain -due to fibromyalgia, arthritis and neuropathy -continue gabapentin and meloxicam 4. Hypertension, stable -continue patient's lisinopril 40 mg daily
[2018-11-28] MEDS: SODIUM CHLORIDE 0.45% 1,000 ML 100 ML IV (16:33)
--- NOTE | 2018-11-28 21:25 | PC.NURSE ---
Addendum entered by Vane Sharma R.N. 11/28/18 21:47: 2145 - Pt expressing concerns r/t employer learning reason for admission. Discussed confidentiality. Discussed mental health resource. Reassurance provided. Bed alarm on. soft lighting in room. Original Note: 2100 - Pt resting in bed, dozing intermittently. Diaphoretic, mild tremors, denies headache or nausea. Assisting pt to reposition, knife found from meal tray in pt bedding. Linen check for additional items. Pt denies suicidal ideation, If you knew the vomit I have to clean up, I won't do that again. Reinforced suicidal precautions and observation. Educated to DM medication. Monitor. Call light in reach. Bed alarm on.
[2018-11-28] MEDS: METFORMIN HCL 500 MG TABLET PO (21:42)
[2018-11-28] MEDS: ALPRAZolam 0.5 MG TABLET 1 MG PO (21:42)
[2018-11-28] MEDS: GABAPENTIN 100 MG CAPSULE 600 MG PO (21:43)
[2018-11-29] VITALS (9 sets, daily range): BP systolic 130–161; BP diastolic 67–86; PULSE 72–93; RESP 16–21; TEMP 36.1–36.7; O2SAT 95–99
[2018-11-29] MEDS: SODIUM CHLORIDE 0.45% 1,000 ML 100 ML IV (02:27)
--- NOTE | 2018-11-29 06:29 | PC.NURSE ---
Addendum entered by Beverly Sprague R.N. 11/29/18 06:36: Patient also mentioned this am that she didn't take Cymbalta. It was a bottle and a half of Prozac Original Note: Patient has been awake throughout night. Oriented x3, cooperative, CIWA 10 and 12 for moderate tremors, mild anxiety, diaphoresis, tolerated snack without nausea, CBG checked at 0300 = 119. NSR, no QT elongation, BP 140s-150s/70s, SpO2 >94% RA, seizure pads on rails, suicide precautions in place, in constant observation of staff at all times. Says she is embarrassed about what I did Talked to daughter who will be in to visit this am.
[2018-11-29] MEDS: LISINOPRIL 20 MG TABLET 40 MG PO (10:16)
[2018-11-29] MEDS: MELOXICAM 7.5 MG TABLET 15 MG PO (10:16)
[2018-11-29] MEDS: METFORMIN HCL 500 MG TABLET PO ×2 (10:16→20:18)
[2018-11-29] MEDS: GABAPENTIN 300 MG CAPSULE PO (10:17)
[2018-11-29] MEDS: ENOXAPARIN 40 MG/0.4 ML SYRINGE SUBCUT (10:18)
--- NOTE | 2018-11-29 10:42 | PT.IPTN ---
Addendum entered and electronically signed by Alva Gupta, PT 11/29/18 11:34: CIWA protocol has now been discontinued, will attempt to see the patient for PT eval immediately after lunch. Original Note: Current Diagnoses Poisoning by selective serotonin and norepinephrine reuptake inhibitors, intentional self-harm, initial encounter (11/28/18) Physical Therapy Treatment Note Notes CIWA currently 11, PT protocol is to wait until CIWA<10 for at least 24 hours to initiate PT eval. Will hold today and attempt again tomorrow.
--- NOTE | 2018-11-29 13:45 | PT.IIE ---
Current Diagnoses Poisoning by selective serotonin and norepinephrine reuptake inhibitors, intentional self-harm, initial encounter (11/28/18) Medical History (Last Updated 11/28/18 @ 16:59 by Vane Sharma RN) Anxiety (Acute) Arthritis (Acute) Depression (Acute) Diabetes (Acute) Fibromyalgia (Acute) Hypertension (Acute) Insomnia (Acute) Suicidal overdose (Acute) Physical Therapy Inpatient Evaluation/Re-Eval M1 PT/OT-IP Prior Functional Status Start: 11/29/18 10:39 Freq: NEEDED Status: Active Protocol: Document 11/29/18 13:45 AB (Rec: 11/29/18 15:30 AB [id number]) Medical Review Prior Functional Status Medical History Reviewed Yes Communication able to make needs known Mobility and Gait stated that she is independent with all mobilities and ambulation without AD Social History Household Members none Living Arrangements House Number of Floors (Floors) Two Floors Number of Stairs To Enter/Railing? 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 stated that she has neighbors that check on her M2 PT-IP Current Condition Start: 11/29/18 10:39 Freq: NEEDED Status: Active Protocol: Document 11/29/18 13:45 AB (Rec: 11/29/18 15:30 AB [id number]) Physical Therapy Current Condition Current Condition Evaluation Date 11/29/18 Treatment Diagnosis overdose; difficulty in walking Onset Date 11/28/18 Precautions Other Precautions ETOH withdrawal; Falls M3 PT-IP Subjective Start: 11/29/18 10:39 Freq: NEEDED Status: Active Protocol: Document 11/29/18 13:45 AB (Rec: 11/29/18 15:30 AB [id number]) Subjective Physical Therapy Visit Type Type Initial Evaluation Visit Start Time 13:45 Visit Stop Time 14:15 Total Visit Minutes 30 Number of REGISTERED ROUTE ASSOCIATE Visits 0 Physical Therapy Visit Comments Patient Comments pt wants to go home today Therapy Pain Assessment Pain When Pain Assessed During Weight Bearing Pain Present Pain Present Pain Reported Location Bilateral Knee Scale Used pain scale not stated M4 PT-IP Mobility and Gait Start: 11/29/18 10:39 Freq: NEEDED Status: Active Protocol: Document 11/29/18 13:45 AB (Rec: 11/29/18 15:30 AB [id number]) PT-Bed Mobility Assessment Supine to Sit Supine to Sit Standby Assistance PT-Transfer Assessment Sit to and From Stand Sit to and from Stand Maximum Assistance 2 Person Assistance Use of Upper Extremities Equipment Transfer Assistive Device Gait Belt Front Wheeled Walker Orthotic/Prosthetic Devices or Brace: No Transfers Transfer Destination Chair Transfer Technique Stand Step Pivot Transfer Ability Level of Assist Maximum Assistance 2 Person Assistance Use of Upper Extremities Comments Mobility Comments pt is very impulsive. (+) tremors. completed sit <> stand x 4 reps requiring max A x 2 and max cues for safety. pt with increase posterior LOB. pt required max A x 2 and max cues to complete stand step pivot transfer using FWW . Gait Assessment Comments Gait Comments able to take steps during transfer PT-Balance Assessment Sitting Balance and Reactions Static Sitting Balance Ability Fair Dynamic Sitting Balance Ability Fair Standing Balance and Reactions Static Standing Balance Ability Poor Dynamic Standing Balance Ability Poor Device Used FWW M5 PT-IP Objective Assessments Start: 11/29/18 10:39 Freq: NEEDED Status: Active Protocol: Document 11/29/18 13:45 AB (Rec: 11/29/18 15:30 AB [id number]) Orientation Orientation/Cognition Level of Alertness Alert Orientation Name Place Situation Safety Awareness Decreased Safety Awareness Memory Description Short Term Impaired Vehicle Check In Clerk Impaired Gross Range of Motion Lower Extremity ROM Assessment Within Functional Limits Strength Lower Extremity Strength Assessment Bilaterally Impaired Knee 3+/5 Muscle Tone Comments Muscle Tone Comments (+) overall tremors M6 PT-IP Treatment Start: 11/29/18 10:39 Freq: NEEDED Status: Active Protocol: Document 11/29/18 13:45 AB (Rec: 11/29/18 15:30 AB [id number]) Physical Therapy Treatment Education Education Provided Safety M7 PT-IP Assessment and Plan Start: 11/29/18 10:39 Freq: NEEDED Status: Active Protocol: Document 11/29/18 13:45 AB (Rec: 11/29/18 15:30 AB [id number]) PT Summary Assessment and Plan Potential Rehabilitation Potential Fair Status of Condition at Evaluation Evolving Summary Impairments Pain ROM Strength Balance Coordination Sensation Tone Cognition Bed Mobility Transfers Gait Activity Tolerance Assessment Summary pt requiring 2 person assist with mobility and is impulsive . pt will require 24/7 assist at this time and will benefit from SNF rehab. will continue to assess progress. Goals Bed Mobility Goal Independent Transfer Goal Independent Front Wheeled Walker Gait Goal Independent Front Wheel Walker Gait Distance 200 Other Goals up/down 2 steps without rails SBA Days to Meet Goals 5 Frequency of Treatment Frequency Of Treatment Once a Day Treatment Plan Physical Therapy Treatment Plan Bed Mobility Training Transfer Training Gait Training Therapeutic Exercise Balance Retraining Discharge Planning Hot or Cold Pack Neuromuscular Re-ed Coordination Retraining Manual Therapy Other Recommendations and Next Treatment ambulation Focus Recommendations To Nursing Amount of Assist Needed 2 Person Assist Discharge Recommendations PT Discharge Recommendations Home with 24/7 Assist Home Health SNF Rehab Other Discharge Recommendations SNF vs home with 24/7 and home health Equipment Needed for Home Before FWW Discharge
[2018-11-29] MEDS: ACETAMINOPHEN 325 MG TABLET 650 MG PO (15:54)
[2018-11-29] MEDS: LORazepam 2 MG/ML SYRINGE 1 MG IV (16:14)
--- NOTE | 2018-11-29 16:51 | CM.DANOTE ---
SOFT WORK WRAPPER EXAMINER Note: Reviewed chart. Patient is a 62yr old female admitted to [facility] after suspected intentional overdose of duloxetine. PCP is Dr. Hidalgo. Primary payor is 1)[facility]. Received verbal referral from MD/Dr. Chavarria this AM indicating that patient needs SOFT WORK WRAPPER EXAMINER assessment for suicidal ideation. Dr. Chavarria anticipates that patient most likely will be medically stable for discharge after seen by SOFT WORK WRAPPER EXAMINER and therapy. Met with patient this afternoon explained SOFT WORK WRAPPER EXAMINER role. Patient appeared somewhat anxious at time of SOFT WORK WRAPPER EXAMINER visit. Patient with tremors and or twitching with movement. Patient attempted to sit up in bed but had difficulty. SOFT WORK WRAPPER EXAMINER asked patient about her current physical difficulties and she reports that this happens sometimes Patient associates the twitching/tremors with fibromyalgia? SOFT WORK WRAPPER EXAMINER asked patient about current reason for hospitalization. Patient reports that on Wednesday she had a strong desire to end my life. Patient reports that she felt hopeless. Patient called her x-/Maco and told him that she had no purpose and was going to overdose on pills. Patient's x- apparently received the message and called paramedics and patient's daughter/Esther. Patient then brought by paramedics to [facility] for evaluation. Patient admits to h/o depression and anxiety. Patient attributes current mood related to 1)divorce 2)daughter 8months . Patient denies any previous suicide attempts and denies any psychiatric hospitalizations. Patient currently not active with psychiatrist or therapist. Patient reports that she last saw therapist last year however, to difficult to make appointments with her schedule. 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 Patient denies current suicidal ideations and reports that this was a terrible mistake. Patient allows daughter in the room during interview. Daughter confirms that patient has never done anything like this before. Patient agreeable to outpatient follow up and daughter in agreement to check on patient on home daily. Patient provided with resources for Crisis and [facility]. Patient appreciative. Throughout, assessment patient with off/on tremors and or twitching. Placed call to PT and they plan to see patient this afternoon. Later during interview, patient confessed to drinking alcohol on every other day basis. Last drink was apricot liquor yesterday to wash down the pills she took. Patient admits to having drinking problem but appears to lack awareness of how much she truly drinks a day or every other day? Placed call to Dr. Chavarria with SOFT WORK WRAPPER EXAMINER concerns. Dr. Chavarria reports that he would like to watch patient this evening for detox and safety purposes. PT to evaluate. Patient somewhat emotional when told that she needs to remain hospitalized for safety. Daughter in agreement. P: SOFT WORK WRAPPER EXAMINER to f/u on 11-30-18. Patient should be assessed again for suicidal ideations. If patient declines assistance and unsafe to discharge DCR to be called once medically stable [phone]. If patient in agreement to inpatient services or needs appointment made for outpatient services call [facility] at [phone]. Patient also provided with above information. MARII Daniels Discharge Planning/Care Management Discharge Assessment Start: 11/29/18 16:47 Freq: Status: Active Protocol: Document 11/29/18 16:47 KJS (Rec: 11/29/18 16:50 KJS [id number]) Discharge Planning Assessment Assigned Financial Intern MARII Daniels Contact Information Esther (daughter) Advance Directives? Yes Advance Directives on File No History Provided By Patient Family Member Prior Living Arrangements House Household Members none Type of transporation used prior to Drives own vehicle admit Independent with ADL's Yes Is patient alert and oriented? Yes Caregiver for Another No Transportation Arrangement Family to provide transport. Additional Comment Pending therapy and mental health needs. Review Status In Process Please Provide Date Initial DC 11/29/18 Assessment Was Performed Next Review Type Continued Stay Review Discharge Planning/Care Management Discharge Assessment Start: 11/29/18 16:47 Freq: Status: Active Protocol: Document 11/29/18 16:47 KJS (Rec: 11/29/18 16:50 KJS [id number]) Discharge Planning Assessment Assigned Financial Intern MARII Daniels Contact Information Esther (daughter) Advance Directives? Yes Advance Directives on File No History Provided By Patient Family Member Prior Living Arrangements House Household Members none Type of transporation used prior to Drives own vehicle admit Independent with ADL's Yes Is patient alert and oriented? Yes Caregiver for Another No Transportation Arrangement Family to provide transport. Additional Comment Pending therapy and mental health needs. Review Status In Process Please Provide Date Initial DC 11/29/18 Assessment Was Performed Next Review Type Continued Stay Review Discharge Planning/Care Management CM Discharge Assessment Start: 11/29/18 16:47 Freq: Status: Active Protocol: Document 11/29/18 16:47 KJS (Rec: 11/29/18 16:50 KJS [id number]) Discharge Planning Assessment Assigned Financial Intern MARII Daniels Contact Information Esther (daughter) Advance Directives? Yes Advance Directives on File No History Provided By Patient Family Member Prior Living Arrangements House Household Members none Type of transporation used prior to Drives own vehicle admit Independent with ADL's Yes Is patient alert and oriented? Yes Caregiver for Another No Transportation Arrangement Family to provide transport. Additional Comment Pending therapy and mental health needs. Review Status In Process Please Provide Date Initial DC 11/29/18 Assessment Was Performed Next Review Type Continued Stay Review
--- NOTE | 2018-11-29 17:34 | PC.NURSE ---
Addendum entered by Vane Sharma R.N. 11/29/18 21:42: 1930 - Pt requesting medication, to help me relax, Educated to dose times. Pt reports persistent inability to relax and sleep. Remains tremulous and diaphoretic. Comfort measures provided. Medication to be provided when available. Call light in reach. Bed alarm on. Original Note: 1600 -Pt requesting to go to bed. Full 2 person assist to transfer, with gaitbelt, and fww. Difficult transfer r/t tremors and impulsiveness. C/o of anxiety, mild nausea, mild headache and muscle aches. Medicated with apap and ativan per order. Positioned for comfort. Seizure pads in place. Call light in reach. Bed alarm on.
--- NOTE | 2018-11-29 18:35 | PM.PN.1 ---
Subjective Date Patient Seen: 11/29/18 Interval history: Patient is 62-year-old female admitted with intentional overdose of prescription medication. This morning she is awake and seems well oriented but with tremors and very off balance with attempted ambulation. No events on overnight cardiac monitoring. Exam Vital Signs (past 8 hours): - 11/29/18 11:00 11/29/18 16:04 Temperature 97.4 F L 97.0 F L Pulse Rate 93 H 72 Respiratory Rate 20 16 Blood Pressure 136/71 135/86 Oxygen Delivery Method Room Air Oxygen Flow Rate 0 Narrative Exam Narrative: General: Alert, cooperative, mildly tremulous Lungs: Clear to auscultate Heart: Regular rhythm Extremities: No edema Neurological: Affect diminished, slightly anxious, denies active suicidal ideation Objective Labs Result Diagrams: 11/28/18 11:05 11/28/18 11:05 Assessment & Plan Assessment & Plan narrative: 62-year-old female admitted after intentional drug overdose. 1. Drug overdose, intentional with suicidal intent, though had called friend for help after ingestion -on treatment for depression and anxiety -took 150 mg capsules duloxetine 60 mg from prior prescription -no EKG changes or evidence of seizures -maintenance IV fluids -continued patient's alprazolam 1 mg at bedtime, hold fluoxetine -patient not actively suicidal by my evaluation as well as evaluation by mental health hospital social worker, patient will follow up with outpatient counseling, seems to have good support by daughter -still very shaky and unsteady on feet and unable to discharge home 2. Acute EtOH withdrawal -patient a little vague about ETOH intake but admits to drinking 5 glasses of wine at a sitting and also drinking a fifth of vodka on weekends but states she does not drink every day, however appears to be in mild withdrawal -ordered lorazepam 1 mg IV or po q.4 hours as needed, monitor CIWA 3. Diabetes, controlled -continue metformin 500 mg twice daily new 4. Chronic pain -due to fibromyalgia, arthritis and neuropathy -continue gabapentin and meloxicam 5. Hypertension, stable -continue patient's lisinopril 40 mg daily Disposition: Continue management with possible discharge home tomorrow if ETOH withdrawal under control and patient more steady on feet. Physical therapy consult requested.
--- NOTE | 2018-11-29 18:40 | P.PN_ITS ---
Subjective Date Patient Seen: 11/29/18 Interval history: Patient is 62-year-old female admitted with intentional ov erdose of prescription medication. This morning she is awake and seems well oriented but with tremors and very off balance with attempted ambulation. No events on overnight cardiac monitoring. Exam Vital Signs (past 8 hours): - 11/29/18 11:00 11/29/18 16:04 Temperature 97.4 F L 97.0 F L Pulse Rate 93 H 72 Respiratory Rate 20 16 Blood Pressure 136/71 135/86 Oxygen Delivery Method Room Air Oxygen Flow Rate 0 Narrative Exam Narrative: General: Alert, cooperative, mildly tremulous Lungs: Clear to auscultate Heart: Regular rhythm Extremities: No edema Neurological: Affect diminished, slightly anxious, denies active suicidal ideation Objective Labs Result Diagrams: 11/28/18 11:05 11/28/18 11:05 Assessment & Plan Assessment & Plan narrative: 62-year-old female admitted after intentional drug overdose. 1. Drug overdose, intentional with suicidal intent, though had called friend for help after ingestion -on treatment for depression and anxiety -took 150 mg capsules duloxetine 60 mg from prior prescription -no EKG changes or evidence of seizures -maintenance IV fluids -continued patient's alprazolam 1 mg at bedtime, hold fluoxetine -patient not actively suicidal by my evaluation as well as evaluation by mental health aids social worker, patient will follow up with outpatient counseling, seems to have good support by daughter -still very shaky and unsteady on feet and unable to discharge home 2. Acute EtOH withdrawal -patient a little vague about ETOH intake but admits to drinking 5 glasses of wine at a sitting and also drinking a fifth of vodka on weekends but states she does not drink every day, however appears to be in mild withdrawal -ordered lorazepam 1 mg IV or po q.4 hours as needed, monitor CIWA 3. Diabetes, controlled -continue metformin 500 mg twice daily new 4. Chronic pain -due to fibromyalgia, arthritis and neuropathy -continue gabapentin and meloxicam 5. Hypertension, stable -continue patient's lisinopril 40 mg daily Disposition: Continue management with possible discharge home tomorrow if ETOH withdrawal under control and patient more steady on feet. Physical therapy consult requested.
[2018-11-29] MEDS: LORazepam 1 MG TABLET PO (20:16)
[2018-11-29] MEDS: GABAPENTIN 600 MG TABLET PO (20:18)
[2018-11-30] VITALS (7 sets, daily range): BP systolic 142–164; BP diastolic 70–75; PULSE 86–97; RESP 18–23; TEMP 36.2–37.2; O2SAT 96–99
[2018-11-30] MEDS: LORazepam 1 MG TABLET PO (01:35)
--- NOTE | 2018-11-30 06:06 | PM.PN.1 ---
Subjective Date Patient Seen: 11/30/18 Exam Vital Signs (past 8 hours): - 11/30/18 01:00 11/30/18 01:30 11/30/18 01:45 Temperature 97.6 F Pulse Rate 90 Respiratory Rate 19 Blood Pressure 142/74 H Pulse Oximetry 96 99 99 11/30/18 04:19 Temperature 97.2 F L Pulse Rate 86 Respiratory Rate 23 Blood Pressure 153/75 H Pulse Oximetry 98 Oxygen Delivery Method Room Air Oxygen Flow Rate 0 Narrative Exam Narrative: General: No acute distress, well-developed, well-nourished, appropriately interactive HEENT: Normocephalic, atraumatic. External ears without defect. Pupils equal, round, and reactive to light and accommodation. Anicteric sclerae, moist conjunctivae, and no lid lag. Oropharynx free of erythema and cobble stoning with moist mucosa. Neck: Supple with full range of motion. No jugular venous distension. No bruits. No lymphadenopathy or thyromegaly. Cardiovascular: Regular rate and rhythm without murmurs, rubs, or gallops appreciated Pulmonary: Clear to auscultation bilaterally without crackles, wheezes, or rhonchi. Normal respiratory effort with no use of accessory muscles. Abdomen: Bowel tones present. Soft, nontender, nondistended. No hepatosplenomegaly or masses appreciated. Extremities: No clubbing, cyanosis, or edema. Skin: Normal temperature, turgor, and texture; no rash, ulcers, or subcutaneous nodules appreciated. Neurological: Cranial nerves grossly intact. Normal muscle strength, tone, and bulk. Reflexes, coordination, and sensory function within normal limits. No known gait impairment. Psychiatric: Depressed mood and affect. Alert and oriented to person, place, and time. Objective Labs Result Diagrams: 11/28/18 11:05 11/28/18 11:05 Assessment & Plan Assessment & Plan narrative: Janell Vee is a 62-year-old female who was admitted after intentional drug overdose. 1. Intentional drug overdose and suicide attempt, present on admission. Resolved. -On treatment for depression and anxiety. Patient took 150 mg capsules of duloxetine 60 mg from prior prescription. -No EKG changes or evidence of seizures. -Continue maintenance IV fluids -Continue patient's alprazolam 1 mg at bedtime, held fluoxetine. -Patient not actively suicidal by multiple providers evaluations, as well as, evaluation by mental health social sciences lecturer. Patient will follow up with outpatient counseling and seems to have good support by daughter. -Still very shaky and unsteady on feet and unable to discharge home. Ordered physical therapy evaluation and treatment, pending. 2. Acute alcohol withdrawal, not present on admission. Active. -Patient a little vague about ETOH intake but admits to drinking 5 glasses of wine at a sitting and also drinking a fifth of vodka on weekends but states she does not drink every day, however appears to be in mild withdrawal -Ordered lorazepam 1 mg IV or po every 4 hours as needed, monitor CIWA. 3. Diabetes mellitus type 2, non-insulin using, chronic, present on admission. Stable. -Continue metformin 500 mg twice daily. 4. Chronic pain, present on admission. Stable. -Secondary to fibromyalgia, arthritis and neuropathy -Continue patient's gabapentin and meloxicam. 5. Hypertension, chronic, present on admission. Stable. -Continue patient's lisinopril 40 mg daily. Disposition:
--- NOTE | 2018-11-30 06:17 | PC.NURSE ---
Patient slept until 0130. A/O x3 for assessment, moderate tremors and anxiety continue, medicated with 1mg PO Ativan per prn order. Discussed POC to work with PT to increase mobilty prior to discharge. Seizure pads on rails, bed alarm on. Slept again until 0500 when she was attempting to get OOB on own, says I am ready to walk now Tremors still present but not as severe, speech improved, pressured, she is impulsive. Ambulated around bed with gait belt and walker, slightly unsteady. Becomes tachycardic with activity up to 120s. Declined offer of Ativan.
[2018-11-30] MEDS: LORazepam 0.5 MG TABLET PO (09:33)
[2018-11-30] MEDS: LISINOPRIL 20 MG TABLET 40 MG PO (09:33)
[2018-11-30] MEDS: GABAPENTIN 300 MG CAPSULE PO (09:34)
[2018-11-30] MEDS: METFORMIN HCL 500 MG TABLET PO (09:34)
[2018-11-30] MEDS: MELOXICAM 7.5 MG TABLET 15 MG PO (09:34)
[2018-11-30] MEDS: ENOXAPARIN 40 MG/0.4 ML SYRINGE SUBCUT (09:34)
--- NOTE | 2018-11-30 11:08 | PT.IPTN ---
Current Diagnoses Poisoning by selective serotonin and norepinephrine reuptake inhibitors, intentional self-harm, initial encounter (11/28/18) Physical Therapy Treatment Note M2 PT-IP Current Condition Start: 11/29/18 10:39 Freq: NEEDED Status: Active Protocol: Document 11/29/18 13:45 AB (Rec: 11/29/18 15:30 AB [id number]) Physical Therapy Current Condition Current Condition Evaluation Date 11/29/18 Treatment Diagnosis overdose; difficulty in walking Onset Date 11/28/18 Precautions Other Precautions ETOH withdrawal; Falls M3 PT-IP Subjective Start: 11/29/18 10:39 Freq: NEEDED Status: Active Protocol: Document 11/30/18 10:44 SA (Rec: 11/30/18 11:07 SA [id number]) Subjective Physical Therapy Visit Type Type Treatment Note Visit Start Time 08:55 Visit Stop Time 09:20 Total Visit Minutes 25 Notes Pt up in chair, agreeable to PT. Physical Therapy Visit Comments Patient Comments Pt very eager to go home today and return to work on Wednesday. Therapy Pain Assessment Pain When Pain Assessed During Mobility Pain Present Pain Present Denied Pain M4 PT-IP Mobility and Gait Start: 11/29/18 10:39 Freq: NEEDED Status: Active Protocol: Document 11/30/18 10:44 SA (Rec: 11/30/18 11:07 SA [id number]) PT-Bed Mobility Assessment Supine to Sit Supine to Sit Standby Assistance Sit to Supine Sit to Supine Standby Assistance PT-Transfer Assessment Sit to and From Stand Sit to and from Stand Minimal Assistance 1 Person Assistance Equipment Transfer Assistive Device Gait Belt Front Wheeled Walker Orthotic/Prosthetic Devices or Brace: No Transfers Transfer Destination Chair Bedside Commode Transfer Technique Stand Step Pivot Transfer Ability Level of Assist Minimal Assistance 1 Person Assistance Use of Upper Extremities Comments Mobility Comments Pt is very impulsive and tremulous, needs frequent cues to slow down and breath during mobility tasks. Stand pivot txs on/off BSC in bathroom with FWW and grab bar and Min A. Max cues for safety and slowing down. Gait Assessment Gait Gait Assistance Required: Minimum Assistance 1 Person Assist Distance (Feet) 60 Assistive Devices Assistive Device None Gait Belt Front Wheeled Walker Orthotic/Prosthetic Devices or Brace: No Gait Deviations General Gait Pattern Decreased Stride Length Decreased Feet Clearance Step-to Gait Factors Limiting Gait Function Factors Limiting Gait Function Decreased Activity Tolerance Difficulty Following Directions Incoordination Poor Balance Poor Safety Awareness Comments Gait Comments Short walk to/from bathroom with FWW and Min A, pt very unsafe with FWW and needs cues to use safety. Gait training in room with no AD and Min A for 20 feet x 2 with cues for safety and no LOB, but pt is still very shaky and with tremors. Pt insists on wearing flip flops for ambulation stating that she wears them at home. PT-Balance Assessment Sitting Balance and Reactions Static Sitting Balance Ability Fair Dynamic Sitting Balance Ability Fair Functional Assessments Functional Tests Timed Up and Go 21 seconds Other Functional Tests Performed TUG completed with no AD and score of 21 seconds, which relates to high risk of falls. M5 PT-IP Objective Assessments Start: 11/29/18 10:39 Freq: NEEDED Status: Active Protocol: Document 11/29/18 13:45 AB (Rec: 11/29/18 15:30 AB [id number]) Orientation Orientation/Cognition Level of Alertness Alert Orientation Name Place Situation Safety Awareness Decreased Safety Awareness Memory Description Short Term Impaired Business Segment Manager Impaired Gross Range of Motion Lower Extremity ROM Assessment Within Functional Limits Strength Lower Extremity Strength Assessment Bilaterally Impaired Knee 3+/5 Muscle Tone Comments Muscle Tone Comments (+) overall tremors M6 PT-IP Treatment Start: 11/29/18 10:39 Freq: NEEDED Status: Active Protocol: Document 11/30/18 10:44 SA (Rec: 11/30/18 11:07 [id number]) Physical Therapy Treatment Exercises Exercises Ankle Pumps Quad Sets Seated Knee Flexion/Extension Education Education Provided Safety M7 PT-IP Assessment and Plan Start: 11/29/18 10:39 Freq: NEEDED Status: Active Protocol: Document 11/30/18 10:44 SA (Rec: 11/30/18 11:07 [id number]) PT Summary Assessment and Plan Potential Rehabilitation Potential Fair Status of Condition at Evaluation Evolving Summary Assessment Summary Pt with decreased level of assist today at 1 person and Min A for gait /transfers. Pt does demonstrate poor safety awareness and insight. Frequency of Treatment Frequency Of Treatment Once a Day Treatment Plan Physical Therapy Treatment Plan Bed Mobility Training Transfer Training Gait Training Therapeutic Exercise Balance Retraining Discharge Planning Hot or Cold Pack Neuromuscular Re-ed Coordination Retraining Manual Therapy Other Recommendations and Next Treatment ambulation Focus Recommendations To Nursing Amount of Assist Needed 2 Person Assist Discharge Recommendations PT Discharge Recommendations Home with 24/7 Assist Other Discharge Recommendations Home with home health and 24/7 Supervision for safety.
--- NOTE | 2018-11-30 12:43 | P.DS_ITS ---
History of Present Illness Date Patient Seen: 11/28/18 Chief complaint: overdose / 150 duloxetine 60 mg tab Narrative: Written by Dr. Chavarria: Patient is a 62-year-old female with history of depression, recent stressors, who took intentional overdose of previously prescribed antidepressant. Patient states she took 150 tablets of 60 mg duloxetine at about quarter to 6 this morning. Somehow a friend her daughter was alerted and patient ended up in the ER very confused. Subsequently her confusion has been clearing up. Patient states she intentionally took the pills in attempt to end her life. She is going through a divorce and actually was supposed to meet with patent prosecution attorney today. 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 Her daughter back in 2005 in car accident and it seems that has been on her mind as well. Patient states she vomited about 20 min after taking overdose. She also took a Swig of alcohol with the medicine. The duloxetine was from a prior prescription and it seems she was switched most recently to fluoxetine. She does take alprazolam 1 mg at night but denies overdose of this drug. Patient states she is not seeing a therapist or psychiatrist. Patient's ER evaluation included normal telemetry except tachycardia, EKG x3 with normal QT intervals, not acidotic. Discharge Providers Date of admission: 11/28/18 14:06 Discharge Date: 11/30/18 Consults: 11/28/18 11:29 Consult to Hotel Service Supervisor Urgent Comment: 11/29/18 10:37 Consult to Physical Therapy Evaluate & Treat Comment: Physician Instructions: Evaluate and Treat 11/30/18 09:50 Consult to Occupational Therapy Evaluate & Treat Comment: Physician Instructions: Evaluate and treat Discharge provider: Stacey Vallejo DO Summary Discharge Diagnosis: 1. Intentional drug overdose and suicide attempt, present on admission. Resolved. 2. Acute alcohol versus SSRI withdrawal, not present on admission. Resolving. 3. Diabetes mellitus type 2, non-insulin using, chronic, present on admission. Stable. 4. Chronic pain, present on admission. Stable. 5. Hypertension, chronic, present on admission. Stable. Hospital Course: Janell Vee is a 62-year-old female who was admitted after intentional drug overdose. 1. Intentional drug overdose and suicide attempt, present on admission. Reso lved. -On treatment for depression and anxiety. Patient took 150 mg capsules of duloxetine 60 mg from prior prescription. -No EKG changes or evidence of seizures. -Continued maintenance IV fluids until adequately hydrated. -Continued patient's alprazolam 1 mg at bedtime, held fluoxetine and instructed her to resume at time of discharge. -Patient not actively suicidal by multiple providers evaluations including my own, as well as, evaluation by mental health social service worker. Patient will follow up with outpatient PCP, Psychiatry, and psychology and seems to have good support by daughter. -Still very tremulous but able to ambulate without assistance and per PT would recommend outpatient physical therapy. 2. Acute alcohol versus SSRI withdrawal, not present on admission. Resolving. -Patient a little vague about alcohol intake but admits to drinking 5 glasses of wine at a sitting and also drinking a fifth of vodka on weekends but states she does not drink every day, however appears to be in mild withdrawal -Given lorazepam 1 mg po every 4 hours as needed and monitored CIWA which was low 4-5 (tremulous, mildly diaphoretic and anxious all for which she reports are chronic) at time of discharge. -Instructed patient to restart her fluoxetine as prescribed. -Recommended she abstain from alcohol indefinitely. Instructed patient to have someone with her at all times for the next several days. Informed her of the risks associated with alcohol withdrawal including DT/seizure and fatal arrhythmias. Patient voiced understanding and would like to be discharged home for which she is medically stable at this time. 3. Diabetes mellitus type 2, non-insulin using, chronic, present on admission. Stable. -Continued metformin 500 mg twice daily. 4. Chronic pain, present on admission. Stable. -Secondary to fibromyalgia, arthritis and neuropathy. -Continued patient's gabapentin and meloxicam. 5. Hypertension, chronic, present on admission. Stable. -Continued patient's lisinopril 40 mg daily. Status at Discharge Functional status at discharge: independent ambulation Overall status at discharge: patient is progressing back to baseline Exam Vital Signs (past 8 hours): - 11/30/18 07:37 11/30/18 07:45 11/30/18 11:42 Temperature 98.6 F 99 F Pulse Rate 88 97 H Respiratory Rate 18 19 Blood Pressure 161/70 H 164/72 H Pulse Oximetry 98 98 98 Oxygen Delivery Method Room Air Oxygen Flow Rate 0 Narrative Exam Narrative: General: Middle-aged female sitting in bedside chair and in no acute distress, well-developed, well-nourished, mildly diaphoretic, tremulous and mildly anxious but appropriately interactive. HEENT: Normocephalic, atraumatic. External ears without defect. Pupils equal, round, and reactive to light. Anicteric sclerae, moist conjunctivae, and no lid lag. Oropharynx free of erythema and cobble stoning with moist mucosa. Neck: Supple with full range of motion. No jugular venous distension. No bruits. No lymphadenopathy or thyromegaly. Cardiovascular: Regular rate and rhythm without murmurs, rubs, or gallops appreciated. Pulmonary: Clear to auscultation bilaterally without crackles, wheezes, or rhonchi. Normal respiratory effort with no use of accessory muscles. Abdomen: Soft, bowel sounds present, nontender, nondistended. No hepatosplenomegaly or masses appreciated. Extremities: No clubbing, cyanosis, or edema. Skin: Normal temperature, turgor, and texture; no rash, ulcers, or subcutaneous nodules appreciated. Neurological: Cranial nerves grossly intact. Normal muscle strength, tone, and bulk. Reflexes, coordination, and sensory function within normal limits. No known gait impairment. Psychiatric: Depressed mood and flat affect. Alert and oriented to person, place, and time. Objective Labs Result Diagrams: 11/28/18 11:05 11/28/18 11:05 Discharge Plan Discharge Plan Patient Disposition: Home Discharge comment: You are being discharged home. Recommended that you follow up outpatient for physical therapy to help with gait training. You may potentially be withdrawing from alcohol and/or duloxetine. You are at risk of seizure and fatal arrhythmia. Recommend someone be with you at all times for the next several days. Do not return to work until you feel physically ready which may not be until Wednesday12/05/2018. Please abstain from alcohol indefinitely. Please follow-up with your PCP, Malia Hidalgo, at your scheduled appointment. Recommend psychiatric evaluation and cognitive behavioral therapy with a psychologist. You may resume your normal medications as prescribed. Discharge Med Rec/Prescriptions Prescriptions: Continued multivitamin Tablet 1 tab PO DAILY RF: 0 alprazolam 1 mg Tablet 1 mg PO BEDTIME RF: 0 meloxicam [Mobic] 15 mg Tablet 15 mg PO DAILY RF: 0 lisinopril 20 mg Tablet 40 mg PO DAILY RF: 0 flaxseed oil 1,000 mg Capsule 1,000 mg PO DAILY RF: 0 folic acid 1 mg Tablet 1 mg PO DAILY RF: 0 gabapentin 100 mg Capsule 300 mg PO QAM RF: 0 zolpidem 10 mg Tablet 5 mg PO BEDTIME PRN (Reason: Sleep) RF: 0 fluoxetine 20 mg Capsule 90 mg PO DAILY RF: 0 vitamin E 400 unit Capsule 400 unit PO DAILY RF: 0 B-complex with vitamin C [Super B Complex-Vitamin C] Tablet 1 tab PO DAILY RF: 0 metformin 500 mg Tablet 500 mg PO BID RF: 0 betamethasone valerate 0.1 % Cream 1 applic TOPICAL BID PRN (Reason: pain) RF: 0 betamethasone, augmented [Diprolene] 0.05 % Ointment 1 applic TOPICAL BID PRN (Reason: irritation or rash) RF: 0 gabapentin 100 mg Capsule 400 - 600 mg PO BEDTIME RF: 0 glucosamine-chondroitin 500-400 mg Tablet 3 tab PO BID RF: 0 Calcium 600 + D(3) 600 mg calcium- 200 unit Capsule 2 tab PO DAILY RF: 0 Follow up/Referrals: Malia Hidalgo MD [Non-Staff] - 12/06/18 12:25 pm Provider Discharge Instructions Diet: Low-fat, Low-sodium and Low-cholesterol Visit Report/Discharge Packet Instructions: DI for Delirium Tremens, DI for Alcohol Abuse, DI for Suicidal Ideation-Adult, DI for Drug Overdose in Adults Discharge Data Attending Provider: Lecnho Chavarria Admit Date/Time: 11/28/18 14:06
--- NOTE | 2018-11-30 13:37 | PC.NURSE ---
Pt has been AAO x3 this shift. Pt is noted to have tremors to all extremities. Pt states that she is usually shaky upon waking up in the AM for approximately 1 hour. She attributes this to arthritis and fibromyalgia. Able to get OOB with 1P standing by and FWW. Mild diaphoresis noted. Pt denies anxiety, agitation, hallucinations, delusions, headache, n/v. She is making her needs known with clear, logical speech. She denies SI. She denies feelings of hoplessness. She states that she will not attempt to take her own life again. She reports that she and her daughter Esther have made amends and that she is excited to be a part of her grandchild's life. She is hopeful to go home today. Removed nogueira cath this AM. Pt has been able to void as well as have BM. Tolerating regular diet. Mildly tachycardic with ambulation, HRs 100-120 ST. After resting for 30 seconds, HR decreases to 80s-90s. Pt denies chest pain, palpitations, chest pressure at rest and with activity. She is adamant that she will go home today. Dr. Vallejo rounded. Reported assessment findings. Reported pt insisting on going home today. Reported pt states tremors and diaphoresis are baseline. BATTERY CHARGER TESTER in to work with pt and assess mobility status- related to this RN that pt does have steady gait but poor safety awareness. Spoke with Dr. Vallejo and pt regarding plan of care. Orders received for discharge to home. Daughter, Esther, notified of dc order by pt request. Esther in for d/c teaching. Educated to s/s of acute ETOH withdrawal, fall risk, fall precautions, activity limitations. Educated to medications. Instructed on timing of medications, doses, route, next doses due. Educated to medication compliance. Daughter states she is planning to organize pt's medications into pill boxes and monitor pt's compliance. Reviewed f/u appt which is listed in the d/c packet. Instructed pt to call PCP if unable to keep appointment. Recommended taking a support person to f/u appt. Pt states that neighbor is available to check on her tonight and that daughter is available via phone. Reviewed rec's by Dr. Vallejo listed in the discharge packet. Both pt and daughter verbalize understanding of recs, education, medication regimen, f/u appt. Removed PIV with cath tip intact. Pt transfers independently to w/c and is escorted to POV (driven by daughter) by MANAGER VOICE at 1345.
--- NOTE | 2018-11-30 14:24 | OT.IP.TRT ---
Current Diagnoses Poisoning by selective serotonin and norepinephrine reuptake inhibitors, intentional self-harm, initial encounter (11/28/18) Occupational Therapy Treatment Note M3 OT- IP Subjective and Pain Start: 11/30/18 14:14 Freq: Status: Active Protocol: Document 11/30/18 14:15 [facility] (Rec: 11/30/18 14:23 [facility] [id number]) OT- Subjective Occupational Therapy Visit Type Type Treatment Note Visit Start Time 11:30 Visit Stop Time 11:45 Total Visit Minutes 15 Notes Went to see pt for OT eval, pt not wanting to try to shower or dress at this time as insistent that she will be fine at home. Recommended for pt to have someone stay with her initially. While observing pt walk to the sink , pt a bit unsteady and HR increased to 126. Pt able to do grooming independently. Spoke at length regarding energy conservation, mindfulness, stress management techniques as pt has lots of stress in life at the moment. Pt able to identify that her dog is a stress reliever and has just ordered a weighted blanket to help with her anxiety. Pt really focused on going home and admits to feeling a bit embarassed by her actions,. 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 Mindfulness, and being sure to take care of yourself first. Pt insistent to have someone stay with her.
--- NOTE | 2018-11-30 14:46 | CM.DPNOTE ---
Reviewed chart. Dr Vallejo anticipates pt will DC home today pending PT eval. Per Dr Vallejo's request, completed a letter of medical clearance for Dr Vallejo to sign, this signed doc was then provided to pt upon DC today. Met w/pt, reviewed DCP. Pt very anxious upon visit, tremulous and states being here is making her feel even worse. Pt states she is eager to get home and embrace life.. this will not happen again. Pt denies SI today. She reviews family stressors leading up to this overdose and admits to feeling like everything was caving in on me. Pt also admits to wanting to reunite w/family members that have . Pt states she has what she needs to stay safe and wants to go home. Pt upset w/this GOLF CLUB MANAGER that the previous social media marketing manager didn't sign off on everything. Explained to pt that this GOLF CLUB MANAGER was required to check in today for safety purposes before pt left the hospital. Dr Vallejo suspicious that pt may be in more of a w/d process than what pt will admit to, although pt very eager to go home and Dr Vallejo completing DC order today. Therapy team suggest HH vs 24/7 assistance d/t pt's unsteadiness but pt will not qualify for HH, not homebound. P: Home today, outpt resources have been offered, family to transport. Malia Wadsworth, GOLF CLUB MANAGER
== END 2018-11-30 13:45 | disposition home or self-care (01) | DRG 918 ==
LOC: ED 13:00 → ICU 14:33
PROVIDERS: Admitting Provider Internal Medicine; Emergency Provider Emergency Medicine; Visit Provider Internal Medicine
DX: T43.212A Poisoning by selective serotonin and norepinephrine reuptake inhibitors, intentional self-harm, initial encounter (principal); F10.232 Alcohol dependence with withdrawal with perceptual disturbance; F19.9 Other psychoactive substance use, unspecified; Y92.009 Unspecified place in unspecified non-institutional (private) residence as the place of occurrence of the external cause; R11.10 Vomiting, unspecified; F41.9 Anxiety disorder, unspecified; F32.9 Major depressive disorder, single episode, unspecified; M79.7 Fibromyalgia; I10 Essential (primary) hypertension; E11.9 Type 2 diabetes mellitus without complications; R00.0 Tachycardia, unspecified; Z79.84 Long term (current) use of oral hypoglycemic drugs
CPT/HCPCS: 36415; 36591; 51701; 70450; 80053; 80076; 80305; 80320; 80329; 82550; 82962; 83605; 83735; 84145; 84484; 85025; 87797; 93005; 93010; 96361; 96374; 97116; 97162; 97530; 99285; 99291; G0480; J1650; J2060; J2405; J7050